=== PATIENT | male | born 1945 | race Caucasian/White ===

== ENCOUNTER → 2018-11-24 | Outpatient (REF) | payer MEDICARE, OTHER ==
[2017-04-22 12:43] VITALS: BMI 25.3
[~2018-11-24] MED LIST: ASPI-757 PO; FAMO20TA28 PO; HYDR-385 PO; HYDR-654 PO; IBUP600T22 PO; LEVO-85 PO; PHEN200T32 PO; TAMS0.4C70 PO; [UNRECOGNIZED DRUG - REMARK]
== END ==
LOC: ZZSENDIN 12:00
PROVIDERS: ATTEND Urology
DX: N41.1 Chronic prostatitis (principal); N41.0 Acute prostatitis; N42.89 Other specified disorders of prostate
CPT/HCPCS: 88305; 88344